=== PATIENT | female | born 1955 | race Two or more races ===

== ENCOUNTER 2019-05-08 09:29 | Emergency (ER) | payer OTHER ==
[2019-05-08 09:45] VITALS: TEMP 98; BMI 32.1
--- NOTE | 2019-05-08 10:25 | PDOC ---
Attending Attestation - Resident Resident Name: Lachelle Odell - ED Attending Attestation I have performed the following: I have examined & evaluated the patient, The case was reviewed & discussed with the resident, I agree w/resident's findings & plan, Exceptions are as noted - HPI HPI: 05/08/19 10:24 64y F hx of htn, dm, hl, presents with complaint of rectal bleed. Pt state she was in her USOH this morning until she went to have a BM, she felt constipated and had to push, had a hard BM followed with soft stool with blood on the toilet paper. Pt didn't look very carefully at the stool but thought it was blood on the outside. denies black stool. Pt denies any fever/chills, n/v, diaphoresis, cp, palpitations, lightheadedness. Does not take any blood thinners. no prior history of gib in the past. pt deniesany pain currently. PMD: Dr. Lo Physical exam: GENERAL: The patient is awake, alert, and fully oriented, Nontoxic - in no acute distress, obese HEAD: Normocephalic, atraumatic. LUNGS: Breath sounds equal, clear to auscultation bilaterally. No wheezes, no rhonchi, no rales. HEART: Regular rate and rhythm, normal S1 and S2 without murmur, rub or gallop. ABDOMEN: Soft, nontender, No guarding, no rebound. No CVA tenderness EXTREMITIES: Normal range of motion, no edema. NEUROLOGICAL: No facial assymetry, Normal speech, possible hemorroidal bleed no signs of external hemorrhoids or fissures consider possible diverticular bleed, but low volume suggests against no signs of UGIB will obtian blood work to screen for anemia will reassess - Physicial Exam PE: 05/08/19 13:01 see above - Medical Decision Making 05/08/19 13:00 labs reviewed no signs of anemia guaiac positive, but no mel[place] stool no further episodes of GIB will refer pt to GI for further workup strict returnp recautions were disicussed
[2019-05-08 11:02] LABS: BASO % 0.8 % (0-2.0); EOS % 1.1 % (0-4.5); HEMATOCRIT 39.7 % (32.4-45.2); LYMPH % 20.9 % (8-40); MCH 26.4 pg (25.7-33.7); MCHC 32.7 g/dl (32.0-36.0); MEAN CELL VOLUME 80.7 fl (80-96); MEAN PLT VOLUME 9.9 fl (7.5-11.1); MONO % 5.4 % (3.8-10.2); NEUT % 71.8 % (42.8-82.8); PLATELET COUNT 277 K/MM3 (134-434); RBC 4.93 M/mm3 (3.60-5.2); RDW 13.7 % (11.6-15.6); WHITE BLOOD COUNT 10.9 K/mm3 (4.0-10.0)
--- NOTE | 2019-05-08 11:07 | PDOC ---
History of Present Illness - General Chief Complaint: Rectal Bleed Stated Complaint: Rectal Bleed/ABD PAIN Time Seen by Provider: 05/08/19 10:20 History Source: Patient Exam Limitations: No Limitations - History of Present Illness Initial Comments: 05/08/19 11:01 64 yo F PMH HTN, HLD, NIDDM, C-sections X3, presenting with blood after bowel movement. States that this morning, she was straining to have a BM, had some periumbilical pain. Had "hard stool, then a lot of soft stool, then bright red blood". Abdominal pain has since resolved. Never had bloody stools before. Denies CP, SOB, constipation/diarrhea, fevers/chills, NAIR, N/V. Past History - Past Medical History Allergies/Adverse Reactions: Allergies Allergy/AdvReac Type Severity Reaction Status Date / Time No Known Allergies Allergy Verified 05/08/19 09:45 Home Medications: Ambulatory Orders Albuterol Sulfate Inhaler - [Ventolin HFA Inhaler -] 1 - 2 inh PO Q4H #1 inhaler 01/10/14 Fluticasone/Salmeterol [Advair Hfa 230-21 Mcg Inhaler] 1 inh PO BID 01/10/14 Metformin HCl [Glucophage] 500 mg PO DAILY 01/10/14 Simvastatin [Zocor] 20 mg PO HS 01/10/14 predniSONE [Deltasone -] 40 mg PO DAILY #8 tablet 01/10/14 Asthma: Yes COPD: No Diabetes: Yes HTN: Yes Hypercholesterolemia: Yes - Immunization History Immunization Up to Date: Yes - Psycho Social/Smoking Cessation Hx Smoking History: Never smoked Have you smoked in the past 12 months: No Information on smoking cessation initiated: No Hx Alcohol Use: No Drug/Substance Use Hx: No Substance Use Type: None Review of Systems - Review of Systems Constitutional: No: Chills, Diaphoresis, Fever HEENTM: No: Blurred Vision, Hearing Loss, Difficulty Swallowing Respiratory: No: Cough, Orthopnea, Shortness of Breath Cardiac (ROS): No: Chest Pain, Edema, Irregular Heart Rate, Lightheadedness, Palpitations ABD/GI: Yes: Abd. Pain w/ defecation, Blood Streaked Bowels. No: Constipated, Diarrhea, Nausea, Vomiting : No: Burning, Dysuria, Discharge, Frequency, Flank Pain, Hematuria Musculoskeletal: No: Back Pain, Muscle Pain Neurological: No: Headache, Numbness, Tingling, Weakness *Physical Exam - Vital Signs Last Vital Signs Temp Pulse Resp BP Pulse Ox 98.0 F 68 18 138/67 97 05/08/19 09:42 05/08/19 09:42 05/08/19 09:42 05/08/19 09:42 05/08/19 09:42 - Physical Exam Comments: 05/08/19 11:04 Gen: well-developed, well-nourished, NAD HEENT: atraumatic, normocephalic, no conjuctival pallor Neck: trachea midline, supple CV: regular rate, regular rhythm Pulm: CTA b/l, no wheezing Abd: soft, non-distended, non-tender Rectal: normal tone, no apparent external fissures or external hemorrhoids MSK: full ROM, 2+ pulses Extr: no edema, no deformities Skin: warm, dry Neuro: AAOX4, FTN intact, CN II-XII intact ED Treatment Course - LABORATORY CBC & Chemistry Diagram: 05/08/19 10:43 05/08/19 10:43 - ADDITIONAL ORDERS Additional order review: Laboratory Results 05/08/19 10:05 Stool Occult Blood Positive Medical Decision Making - Medical Decision Making 05/08/19 11:06 64 yo F with blood streaked stool. Concern for possible internal hemorrhoid v diverticulosis. - stool guiac - CBC, CMP, PT/INR - ctm, no active bleeding - dispo per labs 05/08/19 12:45 Patient reassessed, having suprapubic tenderness, states increased frequency. No active bleeding, no SOB, no CP. Will get UA/UC, if inconclusive, will get CT abd/pelvis w/ contrast. 05/08/19 13:30 UA not concerning for UTI, will get CT abd/pelvis w/ contrast. 05/08/19 16:19 CT abd/pelvis w/o acute abnormality. Possible chronic sacroilitis. Will recommend outpatient followup, dc home. Discharge - Discharge Information Problems reviewed: Yes Clinical Impression/Diagnosis: Bloody stools Condition: Good Disposition: HOME - Admission No - Follow up/Referral Referrals: Pete Franco [Primary Care Provider] - - Patient Discharge Instructions Patient Printed Discharge Instructions: DI for Rectal Bleeding, DI Sacroiliac Joint Dysfunction Additional Instructions: You were seen with blood after a bowel movement. Your labs showed that your blood counts were not low, and you did not have a urine infection. A CT abdomen/ pelvis was performed, which did not show any acute changes. However, there was some concern that you may have a condition called sacroilitis. This is an inflammatory condition that should be followed up by your primary care doctor. Please see your primary care doctor in the next few days. You require a follow up colonoscopy to assess for causes of bleeding, so please make sure this is followed up. Return to the ED if you develop worsening shortness of breath or bleeding, or if you have chest pain. - Post Discharge Activity
[2019-05-08 11:13] LABS: INR 1.34 (0.83-1.09); PROTHROMBIN TIME (PATIENT) 15.9 SEC (9.7-13.0)
[2019-05-08 11:27] LABS: ALBUMIN 3.8 g/dl (3.4-5.0); BILIRUBIN,TOTAL 0.3 mg/dL (0.2-1); BLOOD UREA NITROGEN 16.1 mg/dL (7-18); CREATININE 0.7 mg/dL (0.55-1.3); POTASSIUM 3.7 mmol/L (3.5-5.1); TOT PROT 7.8 g/dl (6.4-8.2)
[2019-05-08 13:58] LABS: EPI CELLS 0.8 /HPF (0-5/HPF); HYALINE CASTS 1 /lpf (0-8); PH,URINE 6.5 (5.0-8.0); URINE APPEARANCE CLEAR; URINE BACTERIA 43.2 /hpf (NEGATIVE); URINE BILIRUBIN NEGATIVE (NEGATIVE); URINE COLOR YELLOW; URINE GLUCOSE (UA) NEGATIVE (NEGATIVE); URINE KETONE NEGATIVE (NEGATIVE); URINE LEUK ESTERASE TRACE (NEGATIVE); URINE NITRITE NEGATIVE (NEGATIVE); URINE PROTEIN NEGATIVE (NEGATIVE); URINE RBC 0 /hpf (0-4); URINE UROBILINOGEN 0.2 mg/dL (0.2-1.0); URINE WBC 0 /hpf (0-5)
[2019-05-08 16:01] VITALS: BP 132/78; PULSE 65
== END 2019-05-08 16:51 | disposition home or self-care (01) ==
LOC: JER 09:29
DX: K92.1 Melena (principal); I10 Essential (primary) hypertension; E78.00 Pure hypercholesterolemia, unspecified; E11.9 Type 2 diabetes mellitus without complications; Z79.84 Long term (current) use of oral hypoglycemic drugs; J45.909 Unspecified asthma, uncomplicated
CPT/HCPCS: 36415; 74177-TC; 80053; 81003; 82272; 85025; 85610; 87086; 99283-25